=== PATIENT | male | born 1975 | race Caucasian/White ===

== ENCOUNTER 2017-08-21 21:51 | Emergency (ER) | payer SELFPAY ==
[2017-08-21 22:21] VITALS: BMI 24.3
[2017-08-21] MEDS ORDERED: ALBUTEROL SO4 2.5/IPRATROPIUM 0.5 INH SOL 3 ML VIAL.NEB. NEB ONE (22:24)
[2017-08-21] MEDS ORDERED: DEXAMETHASONE 4 MG TABLET (FP) PO ONE (22:43)
[2017-08-21] MEDS ORDERED: DEXAMETHASONE SOD PHOSPHATE 10 MG/1 ML VIAL ONE (22:47)
--- NOTE | 2017-08-21 22:50 | PDOC ---
History of Present Illness - General Chief Complaint: Asthma Stated Complaint: ASTHMA Time Seen by Provider: 08/21/17 22:37 - History of Present Illness Initial Comments: 08/21/17 22:44 CHIEF COMPLAINT: asthma HISTORY OF PRESENT ILLNESS: 41 yo M with hx of asthma and NIDDM presents to ED with cough x 1 week, and SOB and wheezing worsening today. Patient states he has used his nebulizer at home multiple times without relief. He reports that "today was the worst", and he continues to have wheezing, and "cough with the asthma." He denies any fever, chills, nausea, vomiting or diarrhea. PAST MEDICAL HISTORY: asthma, diabetes FAMILY HISTORY: Denies SOCIAL HISTORY:Denies tobacco, alcohol, illicit drug use. SURGICAL HISTORY: Denies ALLERGIES: moxifloxacin REVIEW OF SYSTEMS General/Constitutional: Denies fever or chills. Denies weakness. HEENT: Denies change in vision. Denies ear pain or discharge. Denies sore throat. Cardiovascular: Denies chest pain or shortness of breath. Respiratory: Wheezing, cough. Gastrointestinal: Denies nausea, vomiting, diarrhea or constipation. Musculoskeletal: Denies joint or muscle swelling or pain. Denies neck or back pain. PHYSICAL EXAM General Appearance: Well-appearing, appropriately dressed. Patient is in no distress and is speaking in full sentences. HEENT: EOMI, PERRLA, normal ENT inspection, normal voice, TMs normal, pharynx normal. No conjunctival pallor. No photophobia, scleral icterus. Neck: Supple. Trachea midline. No tenderness, rigidity, carotid bruit, stridor , lymphadenopathy, or thyromegaly. Respiratory/Chest: Mild wheezing to lower lobes b/l. No chest tenderness, respiratory distress, accessory muscle use. No crackles, rales, rhonchi, stridor , dullness. Cardiovascular: RRR. S1, S2. Musculoskeletal/Extremities: Normal inspection. FROM of all extremities, normal capillary refill. Pelvis Stable. No CVA tenderness. No tenderness to extremities, pedal edema, swelling, erythema or deformity. Integumentary: Appropriate color, dry, warm. 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 Fully oriented, alert. Appropriate mood/affect. Motor strength 5/5. No appreciable EOM palsy, facial droop or sensory deficit. Past History - Past Medical History Allergies/Adverse Reactions: Allergies Allergy/AdvReac Type Severity Reaction Status Date / Time moxifloxacin HCl Allergy Severe Verified 02/04/17 01:34 [From Avelox] Home Medications: Ambulatory Orders Metformin HCl [Metformin HCl ER] 1,000 mg PO BID 09/08/16 Albuterol Sulfate Inhaler - [Ventolin Hfa Inhaler -] 1 - 2 inh PO QID 09/12/16 Prednisone [Deltasone -] 2 tab PO DAILY #10 tablet 02/04/17 Azithromycin [Zithromax 250mg Tablets -] 250 mg PO ASDIR #6 tab 08/22/17 Asthma: Yes COPD: No Diabetes: Yes - Immunization History Immunization Up to Date: Yes - Suicide/Smoking/Psychosocial Hx Smoking History: Never smoked Have you smoked in the past 12 months: No Information on smoking cessation initiated: No Hx Alcohol Use: No Drug/Substance Use Hx: No Substance Use Type: None *Physical Exam - Vital Signs Last Vital Signs Temp Pulse Resp BP Pulse Ox 98.1 F 98 H 24 140/76 94 L 08/21/17 22:19 08/21/17 22:19 08/21/17 22:19 08/21/17 22:19 08/21/17 22:19 ED Treatment Course - LABORATORY CBC & Chemistry Diagram: 08/22/17 00:07 08/22/17 00:07 - Medications Given in the ED: ED Medications Discontinued Medications Generic Name Dose Route Start Last Admin Trade Name Freq PRN Reason Stop Dose Admin Albuterol/Ipratropium 1 amp 08/21/17 22:24 08/21/17 22:00 Duoneb - NEB 08/21/17 22:25 1 amp ONCE ONE Administration Medical Decision Making - Medical Decision Making 08/22/17 00:15 41 yo M with hx of asthma and NIDDM presents to ED with SOB and wheezing x "a few days", worsening today. Duoneb given in triage Patient still with wheezing b/l. -10 mg Decadron po -CXR Chest x-ray wet read negative for infiltrate or acute pathology. Patient reassessed; at this time no wheezing appreciated. Patient still complains "my chest is tight." -Labs -Mg IV 08/22/17 01:13 Patient states he is feeling better at this time. Given duration of cough will rx azithromyxin for bronchitis. Advised patient to take medication as prescribed and f/u with PCP this week. Advised patient of signs and symptoms for return to ER; patient verbalized understanding and agrees to plan. *DC/Admit/Observation/Transfer Diagnosis at time of Disposition: Asthmatic bronchitis Qualifiers: Asthma severity: moderate Asthma persistence: persistent Asthma complication type: with acute exacerbation Qualified Code(s): J45.41 - Moderate persistent asthma with (acute) exacerbation - Discharge Dispostion Disposition: HOME Condition at time of disposition: Stable Admit: No - Prescriptions Prescriptions: Azithromycin [Zithromax 250mg Tablets -] 250 mg PO ASDIR #6 tab - Referrals - Patient Instructions Printed Discharge Instructions: DI for Asthma -- Adult, DI for Acute Bronchitis Additional Instructions: As discussed, please take all medications as prescribed, including the ones prescribed to you by your primary care doctor. You MUST finish the entire course of antibiotics, even if you start feeling better within 1-2 days. Follow up with your primary care doctor by the end of the week for long-term management of your asthma. If you develop fever, chills, rash, vomiting, or diarrhea, or develop any new shortness of breath, chest pain, wheezing, or any new or worsening symptoms, please return to the ER immediately. - Post Discharge Activity
[2017-08-22] MEDS ORDERED: MAGNESIUM SULF 50% (8.12 MEQ/2 ML-1 GM VIAL) IVPB ONE (00:16)
[2017-08-22 00:21] LABS: BASOPHIL 0.9 % (0-2.0); EOSINOPHIL 9.3 % (0-4.5); MCH 24.4 pg (25.7-33.7); MEAN CELL VOLUME 76.1 fl (80-96); MEAN PLT VOLUME 7.9 fl (7.5-11.1); NEUTROPHILS 67.7 % (42.8-82.8); PLATELET COUNT 291 K/MM3 (134-434); RDW 14.8 % (11.9-15.9); WHITE BLOOD COUNT 12.3 K/mm3 (4.0-10.0)
[2017-08-22] MEDS ORDERED: MAGNESIUM SULF 50% (8.12 MEQ/2 ML-1 GM VIAL) ONE (00:32)
[2017-08-22 00:49] LABS: ALBUMIN 3.9 g/dl (3.4-5.0); ANION GAP 12 (8-16); BILIRUBIN,TOTAL 0.5 mg/dL (0.2-1.0); CALCIUM 8.5 mg/dL (8.5-10.1); CO2 23 mmol/L (21-32); GLUCOSE,RANDOM 267 mg/dL (74-106); SGOT/AST 25 U/L (15-37); SGPT/ALT 54 U/L (12-78); TOT PROT 7.5 g/dl (6.4-8.2)
[2017-08-22 00:50] LABS: ALK PHOS 88 U/L (45-117)
[2017-08-22 01:34] VITALS: BP 133/76; PULSE 84; TEMP 97.9
[2017-08-22] MEDS ORDERED: ALBUTEROL SO4 2.5/IPRATROPIUM 0.5 INH SOL 3 ML VIAL.NEB. NEB ONE ×2 (01:46→01:55)
== END 2017-08-22 02:32 | disposition home or self-care (01) ==
LOC: JER 21:51
PROC: 3E0F7GC Introduction of Other Therapeutic Substance into Respiratory Tract, Via Natural or Artificial Opening (ICD-10-PCS; principal; 2017-08-21)
PROC: 3E0F7GC Introduction of Other Therapeutic Substance into Respiratory Tract, Via Natural or Artificial Opening (ICD-10-PCS; 2017-08-21)
PROC: 3E033GC Introduction of Other Therapeutic Substance into Peripheral Vein, Percutaneous Approach (ICD-10-PCS; 2017-08-21)
DX: J45.41 Moderate persistent asthma with (acute) exacerbation (principal); E11.9 Type 2 diabetes mellitus without complications; Z79.84 Long term (current) use of oral hypoglycemic drugs
CPT/HCPCS: 36415; 71020-TC; 80053; 83735; 85025; 99282-25

== ENCOUNTER 2017-10-18 17:01 | Emergency (ER) | payer SELFPAY ==
[2017-10-18 17:17] VITALS: BP 153/85; PULSE 91; TEMP 98.4; BMI 36.0
--- NOTE | 2017-10-18 17:17 | PDOC ---
Rapid Medical Evaluation Time Seen by Provider: 10/18/17 17:15 Medical Evaluation: Allergies Allergy/AdvReac Type Severity Reaction Status Date / Time moxifloxacin HCl Allergy Severe Verified 02/04/17 01:34 [From Avelox] 10/18/17 17:15 I have performed a brief in-person evaluation of this patient. The patient presents with a chief complaint of: red L eye, "sticky stuff this morning", runny nose today, denies change in vision, now "feeling itch to R eye " Pertinent physical exam findings: erythematous L eye I have ordered the following: nothing The patient will proceed to the ED for further evaluation. Discharge Disposition - Diagnosis Red eye - Referrals - Patient Instructions - Post Discharge Activity
[2017-10-18] MEDS ORDERED: TOBRAMYCIN 0.3% OPHTH SOLN 5 ML BOTTLE OU ONE (17:43)
[2017-10-18] MEDS ORDERED: TOBRAMYCIN 0.3% OPHTH SOLN 5 ML BOTTLE ONE (17:46)
--- NOTE | 2017-10-18 17:50 | PDOC ---
History of Present Illness - General Chief Complaint: Eye Problem Stated Complaint: EYE PAIN Time Seen by Provider: 10/18/17 17:15 History Source: Patient Exam Limitations: No Limitations - History of Present Illness Initial Comments: 10/18/17 17:44 here with complaints of redness, sticky is drainage to left eye states was not painful but itching yesterday. Denies visual changes or known trauma. States also had abruption of cold sore to the left side lower lip where he has not had a herpetic outbreak for many many years., Denies fevers, URI symptoms, any prodrome, and states the very faint excoriation/lesions to left cheek is his normal skin tone. Past History - Past Medical History Allergies/Adverse Reactions: Allergies Allergy/AdvReac Type Severity Reaction Status Date / Time moxifloxacin HCl Allergy Severe Verified 10/18/17 17:17 [From Avelox] Home Medications: Ambulatory Orders Metformin HCl [Metformin HCl ER] 1,000 mg PO BID 09/08/16 Valacyclovir HCl [Valtrex] 1,000 mg PO TID #21 tablet 10/18/17 Asthma: Yes CVA: No COPD: No Diabetes: Yes - Immunization History Immunization Up to Date: Yes - Suicide/Smoking/Psychosocial Hx Smoking History: Never smoked Have you smoked in the past 12 months: No Hx Alcohol Use: No Drug/Substance Use Hx: No Substance Use Type: None *Physical Exam - Vital Signs Last Vital Signs Temp Pulse Resp BP Pulse Ox 98.4 F 91 H 20 153/85 96 10/18/17 17:12 10/18/17 17:12 10/18/17 17:12 10/18/17 17:12 10/18/17 17:12 - Physical Exam General Appearance: Yes: Nourished, Appropriately Dressed, Apparent Distress, Mild Distress HEENT: positive: JENNA (with some conjunctival hemorrhage approximately 50% of upper left I, conjunctival is mildly injected but does not appear beefy red appearance of bacterial conjunctivitis. Patient is within normal limits), Normal ENT Inspection, TMs Normal, Pharynx Normal, Other (scabbed herpetic lesion noted to left lower outer lip border). negative: Rhinorrhea Neck: positive: Supple. negative: Lymphadenopathy (R), Lymphadenopathy (L) Respiratory/Chest: positive: Lungs Clear Gastrointestinal/Abdominal: positive: Soft. negative: Tender Musculoskeletal: positive: Normal Inspection. 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 However patient has cold sore and injection with some clearish whitish drainage. Encouraged patient to follow up tomorrow with ophthalmology for thorough evaluation of his conjunctiva and will start Valtrex and cover for bacterial conjunctivitis as well *DC/Admit/Observation/Transfer Diagnosis at time of Disposition: Subconjunctival hemorrhage of left eye Shingles Qualifiers: Herpes zoster complications: with ocular involvement Herpes zoster ocular complication detail: conjunctivitis Qualified Code(s): B02.31 - Zoster conjunctivitis - Discharge Dispostion Disposition: HOME Condition at time of disposition: Stable Admit: No - Prescriptions Prescriptions: Valacyclovir HCl [Valtrex] 1,000 mg PO TID #21 tablet - Referrals Referrals: Tim Melgoza [Staff Physician] - - Patient Instructions Printed Discharge Instructions: DI for Subconjunctival Hemorrhage, DI for Shingles Additional Instructions: Rest, avoid rubbing eyes Wash hands frequently as this is very contagious Wash hands, use eye drops as directed, wash hands after use Do not share eyedrops with other person to may become infected as this will infect them Tobramycin drops 2 drops to affected eye 4 times a day for 5 days Valtrex 1 g tablet 3 times a day for 7 days Call and be seen by ophthalmology as soon as possible to rule out any conjunctival herpetic lesion/shingles involving left eye Avoid contact with others until redness and discharge is gone from eyes. Followup with ophthalmology or private physician as needed - Post Discharge Activity Forms/Work/School Notes: Back to Work
== END 2017-10-18 18:00 | disposition home or self-care (01) ==
LOC: JERFT 17:01
DX: H11.32 Conjunctival hemorrhage, left eye (principal); B02.31 Zoster conjunctivitis
CPT/HCPCS: 99281-25

== ENCOUNTER 2018-04-21 16:51 | Emergency (ER) | payer SELFPAY ==
[2018-04-21 16:58] VITALS: BP 143/84; PULSE 73; TEMP 98; BMI 34.2
--- NOTE | 2018-04-21 17:26 | PDOC ---
History of Present Illness - General Chief Complaint: Rash Stated Complaint: PAIN - History of Present Illness Initial Comments: 42-year-old male with a past medical history significant for diabetes and asthma presents for evaluation of a sensitive area on the left occipital scalp. He states 2 days ago he put essential oil of cinnamon on a ball spot to stimulate hair growth the area slowly became irritated and started draining. There are no other associated symptoms besides localized discomfort. 04/21/18 17:22 Past History - Past Medical History Allergies/Adverse Reactions: Allergies Allergy/AdvReac Type Severity Reaction Status Date / Time moxifloxacin HCl Allergy Severe Verified 04/21/18 16:58 [From Avelox] Home Medications: Ambulatory Orders Metformin HCl [Metformin HCl ER] 1,000 mg PO BID 09/08/16 Valacyclovir HCl [Valtrex] 1,000 mg PO TID #21 tablet 10/18/17 Silver Sulfadiazine [Silvadene] 20 gm TP BID #1 jar 04/21/18 Asthma: Yes CVA: No COPD: No Diabetes: Yes - Immunization History Immunization Up to Date: Yes - Suicide/Smoking/Psychosocial Hx Smoking History: Never smoked Have you smoked in the past 12 months: No Hx Alcohol Use: No Drug/Substance Use Hx: No Substance Use Type: None Review of Systems - Review of Systems Integumentary: Yes: See HPI All Other Systems: Reviewed and Negative *Physical Exam - Vital Signs Last Vital Signs Temp Pulse Resp BP Pulse Ox 98 F 73 18 143/84 99 04/21/18 16:56 04/21/18 16:56 04/21/18 16:56 04/21/18 16:56 04/21/18 16:56 - Physical Exam Comments: There is an approximately 2 cm circumferential erythematous area with crusted purulence there is no open wound there is no fluctuance there is mild warmth and induration the remainder of the scalp is normal. No adenopathy in the periauricular or cervical nodes 04/21/18 17:23 Medical Decision Making - Medical Decision Making This is a chemical burn from essential oils I'll treat him with Silvadene and have him follow-up with dermatology 04/21/18 17:24 *DC/Admit/Observation/Transfer Diagnosis at time of Disposition: Chemical burn - Discharge Dispostion Disposition: HOME Condition at time of disposition: Stable Decision to Admit order: No - Prescriptions Prescriptions: Silver Sulfadiazine [Silvadene] 20 gm TP BID #1 jar - Referrals Referrals: Francisca Goodson MD [Non Staff, Medical] - Trip Mooney MD [Non Staff, Medical] - oJse Calzada MD [Non Staff, Medical] - Chay Guzman MD [Non Staff, Medical] - Lizeth Marley MD [Non Staff, Medical] - Serina Wooten MD [Non Staff, Medical] - Femi Foley MD [Non Staff, Medical] - Zayra Jones MD [Non Staff, Medical] - Lowell Weir MD [Non Staff, Medical] - Francisca Nice MD [Non Staff, Medical] - Shravan Trujillo MD [Non Staff, Medical] - Irma Jimenes MD [Non Staff, Medical] - - Patient Instructions Printed Discharge Instructions: DI for Jc Additional Instructions: This is a chemical burn from an essential oil. Please use the antibiotic cream as directed return to the emergency room should her symptoms worsen or go unresolved. It's very important few to follow-up with the simulation tech for further evaluation and treatment options. I've given you a list of local dermatologists in the area. Follow-up with dermatology in 1-2 days - Post Discharge Activity
== END 2018-04-21 17:27 | disposition home or self-care (01) ==
LOC: JERFT 16:51
PROC: 2W2 Placement, Anatomical Regions, Dressing (ICD-10-PCS; principal; 2018-04-21)
DX: T49.3X1A Poisoning by emollients, demulcents and protectants, accidental (unintentional), initial encounter (principal); Y92.89 Other specified places as the place of occurrence of the external cause
CPT/HCPCS: 99281-25

== ENCOUNTER 2019-05-10 15:57 | Emergency (ER) | payer SELFPAY, OTHER | END 2019-05-10 18:16 | disposition home or self-care (01) | LOC: JERFT 15:57 ==

== ENCOUNTER 2019-05-28 11:14 | Emergency (ER) | payer SELFPAY ==
[2019-05-28 11:24] VITALS: BP 173/65; PULSE 98; TEMP 98; BMI 35.2
[2019-05-28] MEDS ORDERED: predniSONE 20 MG TABLET (UD) PO ONE (11:47)
--- NOTE | 2019-05-28 11:47 | PDOC ---
History of Present Illness - General Chief Complaint: Asthma Stated Complaint: ASTHMA Time Seen by Provider: 05/28/19 11:32 History Source: Patient - History of Present Illness Initial Comments: 05/28/19 13:22 Chief complaint: Asthma Patient 43-year-old male with a history of asthma, diabetes who was last seen in the ER for asthma the beginning of the month, did well and noticed in the last 4 days that he started having worsening symptoms, using inhaler and nebulizer at home. Patient is not as bad as last time. No fever and patient able speak full sentences GENERAL/CONSTITUTIONAL: No fever, weakness. dizziness HEAD, EYES, EARS, NOSE AND THROAT: No change in vision. No ear pain or discharge. No sore throat. CARDIOVASCULAR: No chest pain RESPIRATORY: +shortness of breath or cough GASTROINTESTINAL: No pain, nausea, vomiting, diarrhea or constipation GENITOURINARY: No dysuria MUSCULOSKELETAL: No neck or back pain SKIN: No rash NEUROLOGIC: No headache, vertigo, loss of consciousness, or loss of sensation. GENERAL: The patient is awake, alert, and fully oriented, in no acute distress. HEAD: Normal with no signs of trauma. EYES: Pupils equal, round and reactive to light, sclera anicteric, conjunctiva clear. ENT: pharynx: no erythema, no exudate, uvula midline NECK: supple CHEST: Bilateral wheezing, nontender, rr ABD: soft, nontender BACK: no tenderness or signs of injury EXTREMITIES: Normal range of motion, no edema. NEUROLOGICAL: Normal speech, normal gait. SKIN: Warm, Dry Past History - Past Medical History Allergies/Adverse Reactions: Allergies Allergy/AdvReac Type Severity Reaction Status Date / Time moxifloxacin HCl Allergy Severe Verified 05/28/19 11:24 [From Avelox] Home Medications: Ambulatory Orders metFORMIN HCL [Metformin HCl ER] 1,000 mg PO BID 09/08/16 Valacyclovir HCl [Valtrex] 1,000 mg PO TID #21 tablet 10/18/17 Silver Sulfadiazine [Silvadene] 20 gm TP BID #1 jar 04/21/18 Prednisone [Deltasone] 40 mg PO DAILY #8 tablet 05/10/19 Prednisone [Deltasone] 20 mg PO DAILY #18 tablet 05/28/19 Asthma: Yes CVA: No COPD: No Diabetes: Yes (niddm) - Immunization History Immunization Up to Date: Yes - Suicide/Smoking/Psychosocial Hx Smoking History: Never smoked Have you smoked in the past 12 months: No Hx Alcohol Use: No Drug/Substance Use Hx: No Substance Use Type: None *Physical Exam - Vital Signs Last Vital Signs Temp Pulse Resp BP Pulse Ox 98 F 98 H 18 173/65 H 98 05/28/19 11:21 05/28/19 11:21 05/28/19 11:21 05/28/19 11:21 05/28/19 11:21 Medical Decision Making - Medical Decision Making 05/28/19 13:23 43-year-old male with history of asthma and diabetes with worsening wheezing over the past 4 days. No fever, nonsmoker. Patient will be given a DuoNeb, started on prednisone. Patient does not have a primary care doctor will be given information regarding different options for primary care doctor. No indication for further workup. Patient feels better, lungs are clear, there were no signs of hypoxia or illness. Discussed issues, findings, results, applicable medications and treatments and follow-up. All these were understood and all questions were answered Fingerstick showed glucose under 200, patient was instructed to monitor sugars on the prednisone and watch his sugar intake *DC/Admit/Observation/Transfer Diagnosis at time of Disposition: Asthma exacerbation Qualifiers: Asthma severity: moderate Asthma persistence: unspecified Qualified Code(s): J45.901 - Unspecified asthma with (acute) exacerbation - Discharge Dispostion Disposition: HOME Condition at time of disposition: Stable Decision to Admit order: No - Prescriptions Prescriptions: Prednisone [Deltasone] 20 mg PO DAILY #18 tablet - Referrals - Patient Instructions Printed Discharge Instructions: Asthma -- Adult Additional Instructions: Use albuterol inhaler, 2 puffs every 4 hours as needed for wheezing. Take prednisone 40 mg once daily for 4 more days Return to the ER if fever, shortness of breath or getting sicker. Otherwise follow-up with your doctor in one to 2 days - Post Discharge Activity
[2019-05-28] MEDS ORDERED: ALBUTEROL SO4 2.5/IPRATROPIUM 0.5 INH SOL 3 ML VIAL.NEB. NEB ONE (11:56)
[2019-05-28] MEDS ORDERED: predniSONE 20 MG TABLET (UD) ONE (11:56)
[2019-05-28] MEDS: ALBUTEROL SO4 2.5/IPRATROPIUM 0.5 INH SOL 3 ML VIAL.NEB. NEB SCH ×4 (11:59→12:47)
== END 2019-05-28 13:07 | disposition home or self-care (01) ==
LOC: JERFT 11:14
PROC: 3E0F7GC Introduction of Other Therapeutic Substance into Respiratory Tract, Via Natural or Artificial Opening (ICD-10-PCS; principal; 2019-05-28)
DX: J45.901 Unspecified asthma with (acute) exacerbation (principal); E11.9 Type 2 diabetes mellitus without complications
CPT/HCPCS: 82962; 99281-25

== ENCOUNTER 2019-06-17 20:47 | Emergency (ER) | payer SELFPAY | END 2019-06-17 22:00 | disposition home or self-care (01) | LOC: JERFT 20:47 ==

== ENCOUNTER 2021-12-22 02:47 | Emergency (ER) | payer BC, OTHER ==
[2021-12-22] MEDS ORDERED: SODIUM CHLORIDE 1,000 ML IV STA (03:21)
[2021-12-22] MEDS ORDERED: KETOROLAC TROMETHAMINE 30 MG/1 ML VIAL IVPUSH ONE (03:21)
[2021-12-22] MEDS ORDERED: ONDANSETRON 4 MG/2 ML VIAL IVPUSH ONE (03:21)
[2021-12-22] MEDS ORDERED: KETOROLAC TROMETHAMINE 30 MG/1 ML VIAL ONE (03:38)
[2021-12-22] MEDS ORDERED: ONDANSETRON 4 MG/2 ML VIAL ONE (03:38)
[2021-12-22 03:42] VITALS: BP 152/87; PULSE 90; TEMP 97.9; BMI 37.1
[2021-12-22 04:03] LABS: BASO % 1.2 % (0-2.0); EOS % 9.3 % (0-4.5); HEMATOCRIT 41.4 % (35.4-49); HEMOGLOBIN 13.3 GM/dL (11.7-16.9); LYMPH % 27.8 % (8-40); MCH 23.8 pg (25.7-33.7); MCHC 32.1 g/dl (32.0-35.9); MEAN CELL VOLUME 74.2 fl (80-96); MONO % 7.5 % (3.8-10.2); NEUT % 54.2 % (42.8-82.8); PLATELET COUNT 247 10^3/uL (134-434); RBC 5.58 M/mm3 (4.00-5.60); RDW 15.3 % (11.9-15.9); WHITE BLOOD COUNT 8.4 K/mm3 (4.0-10.0)
[2021-12-22 04:04] LABS: PH,URINE 5.5 (5.0-8.0); URINE APPEARANCE CLEAR; URINE BILIRUBIN NEGATIVE (NEGATIVE); URINE COLOR YELLOW; URINE GLUCOSE (UA) 3+ (NEGATIVE); URINE KETONE NEGATIVE (NEGATIVE); URINE LEUK ESTERASE NEGATIVE (NEGATIVE); URINE NITRITE NEGATIVE (NEGATIVE); URINE PROTEIN NEGATIVE (NEGATIVE); URINE UROBILINOGEN 0.2 mg/dL (0.2-1.0)
[2021-12-22 04:33] LABS: ALBUMIN 4.1 g/dl (3.4-5.0); BLOOD UREA NITROGEN 8.7 mg/dL (7-18); CALCIUM 9.8 mg/dL (8.5-10.1)
[2021-12-22 04:36] LABS: CREATININE 0.8 mg/dL (0.55-1.3)
[2021-12-22 04:38] LABS: BILIRUBIN,TOTAL 0.3 mg/dL (0.2-1); TOT PROT 7.4 g/dl (6.4-8.2)
== END 2021-12-22 05:12 | disposition home or self-care (01) ==
LOC: JER 02:47
PROC: 3E0333Z Introduction of Anti-inflammatory into Peripheral Vein, Percutaneous Approach (ICD-10-PCS; principal; 2021-12-22)
PROC: 3E0337Z Introduction of Electrolytic and Water Balance Substance into Peripheral Vein, Percutaneous Approach (ICD-10-PCS; 2021-12-22)
DX: N20.1 Calculus of ureter (principal)
CPT/HCPCS: 36415; 74176-TC; 80053; 81003; 85025; 99284-25

== ENCOUNTER 2025-07-26 12:58 | Day surgery (SDC) | payer OTHER ==
[2025-07-26 13:21] VITALS: PULSE 87; RESP 18; TEMP 98
[2025-07-26] MEDS: IRON SUCROSE INJECTION 200 MG in SODIUM CHLORIDE 100 ML IVPB ONE (13:50)
[2025-07-26 14:43] VITALS: BP 118/62
== END 2025-07-26 14:43 | disposition home or self-care (01) ==
LOC: FINFUSION 12:58 → FM/S 13:01 → FINFUSION 14:43
PROVIDERS: ATTEND Family Medicine
PROC: 3E033GC Introduction of Other Therapeutic Substance into Peripheral Vein, Percutaneous Approach (ICD-10-PCS; principal; 2025-07-26)
DX: D50.9 Iron deficiency anemia, unspecified (principal)
CPT/HCPCS: 96365; J1756

== ENCOUNTER 2025-08-02 10:45 | Day surgery (SDC) | payer OTHER ==
[2025-08-02] MEDS: IRON SUCROSE INJECTION 200 MG in SODIUM CHLORIDE 100 ML IVPB ONE (11:06)
[2025-08-02 12:08] VITALS: BP 120/75; PULSE 68; RESP 16; TEMP 98.1
== END 2025-08-02 12:11 | disposition home or self-care (01) ==
LOC: FINFUSION 10:45 → FM/S 10:46 → FINFUSION 12:11
PROVIDERS: ATTEND Family Medicine
PROC: 3E033GC Introduction of Other Therapeutic Substance into Peripheral Vein, Percutaneous Approach (ICD-10-PCS; principal; 2025-08-02)
DX: D50.9 Iron deficiency anemia, unspecified (principal)
CPT/HCPCS: 96365; J1756